=== PATIENT | female | born 1990 | race Caucasian/White ===

== ENCOUNTER 2018-12-18 13:55 | Inpatient (IN) | payer OTHER ==
[2018-12-18 17:19] VITALS: BMI 19.1
--- NOTE | 2018-12-18 19:00 | HP ---
<Mary Shepard - Last Filed: 12/18/18 18:54> CIWA Score Nausea/Vomitin-Mild Nausea/No Vomiting - Admission Criteria [facility]ASAS Guidelines: Admission for Medically Managed Detox: Requires at least one of the followin. CIWA greater than 12 2. Seizures within the past 24 hours 3. Delirium tremens within the past 24 hours 4. Hallucinations within the past 24 hours 5. Acute intervention needed for co occurring medical disorder 6. Acute intervention needed for co occurring psychiatric disorder 7. Severe withdrawal that cannot be handled at a lower level of care (continued vomiting, continued diarrhea, abnormal vital signs) requiring intravenous medication and/or fluids 8. Admission ROS [facility] Chief Complaint: heroin detox Allergies/Adverse Reactions: Allergies Allergy/AdvReac Type Severity Reaction Status Date / Time No Known Allergies Allergy Verified 12/18/18 17:14 History of Present Illness: poor historian. sedated. Patient is a 28 yo F with no known PMHx, here for heroin detox. 2-3 grams a day via IV. Started heroin 2 years ago. Was in a methadone program 5 months ago. 120mg. never overdosed. carries a narcan pen with her. uses cocaine every day via IV. can't quantify. Drinks 2-3 pints of vodka a day. Last drink at midnight. unemployed. homeless. - Ebola screening Have you traveled outside of the country in the last 21 days: No (N) Have you had contact with anyone from an Ebola affected area: No Do you have a fever: No Patient History - Patient Medical History Hx Anemia: No Hx Asthma: No Hx Chronic Obstructive Pulmonary Disease (COPD): No Hx Cancer: No Hx Cardiac Disorders: No Hx Congestive Heart Failure: No Hx Hypertension: No Hx Hypercholesterolemia: No Hx Pacemaker: No HX Cerebrovascular Accident: No Hx Seizures: Yes (etoh and drug related seizures/ last in 2014) Hx Dementia: No Hx Diabetes: No Hx Gastrointestinal Disorders: No Hx Liver Disease: No Hx Genitourinary Disorders: No Hx Sexually Transmitted Disorders: No Hx Renal Disease (ESRD): No Hx Thyroid Disease: No Hx Human Immunodeficiency Virus (HIV): No (NEGATIVE HX) Hx Hepatitis C: No Hx Depression: Yes Hx Suicide Attempt: No Hx Bipolar Disorder: No Hx Schizophrenia: No - Patient Surgical History Past Surgical History: No - PPD History Date: 12/31/15 Results: 0 mm - Reproductive History Last Menstrual Period: 01/27/16 - Smoking Cessation Smoking history: Current every day smoker Have you smoked in the past 12 months: Yes Aproximately how many cigarettes per day: 20 Cigars Per Day: 0 Hx Chewing Tobacco Use: No - Substances abused Heroin Substance route: Injection Frequency: Daily Amount used: 1 BRICK Age of first use: 25 Date of last use: 12/18/18 Cocaine Substance route: Injection Frequency: Daily Amount used: $1000 Age of first use: 25 Date of last use: 12/18/18 Alcohol Substance route: Oral Frequency: Daily Amount used: 1 PINT OF HENESSEY AND PATRON Age of first use: 25 Date of last use: 12/18/18 Family Disease History - Family Disease History Family Disease History: CA: Grandparent (GM-BREAST CA IN REMISSION), Respiratory : Mother (ASTHMA), Other: Sister (HTN) Admission Physical Exam [facility] - Vital Signs Vital Signs: Vital Signs - 24 hr 12/18/18 17:09 Temperature 97.1 F L Pulse Rate 58 L Respiratory 20 Rate Blood Pressure 135/60 Breathalyzer - Breathalyzer Breathalyzer: 0 Urine Drug Screen - Test Device Lot number: [id number] Expiration date: 09/06/20 - Control Is test valid?: Yes - Results Drug screen NEGATIVE: No Urine drug screen results: CHRISTIANO-Cocaine, FEN-Fentanyl, MOP-Opiates, OXY-Oxycodone <Edi Hartman - Last Filed: 12/18/18 20:27> COWS - Scale Resting Pulse: 0= [place] 80 or Below Sweatin= Chills/Flushing Restless Observation: 1= Difficult to Sit Still Pupil Size: 1= Pupils >than Normal Bone or Joint Aches: 2= Severe Diffuse Aches Runny Nose/ Eye Tearin= Runny Nose/Eyes GI Upset > 30mins: 1= Stomach Cramp Tremor Observation: 2= Slight Tremor Visible Yawning Observation: 1= 1-2x During Session Anxiety or Irritability: 2=Irritable/Anxious Goose Flesh Skin: 5=Prominent Piloerection COWS Score: 18 CIWA Score Nausea/Vomitin Muscle Tremors: 4-Moderate,w/Arms Extend Anxiety: 3 Agitation: 3 Paroxysmal Sweats: 1-Minimal Palms Moist Orientation: 2-Disoriented Date<2 days Tacttile Disturbances: 1-Very Mild Itch/Numbness Auditory Disturbances: 1-Very Mild Visual Disturbances: 2-Mild Sensitivity Headache: 3-Moderate CIWA-Ar Total Score: 22 - Admission Criteria OASAS Guidelines: Admission for Medically Managed Detox: Requires at least one of the followin. CIWA greater than 12 2. Seizures within the past 24 hours 3. Delirium tremens within the past 24 hours 4. Hallucinations within the past 24 hours 5. Acute intervention needed for co occurring medical disorder 6. Acute intervention needed for co occurring psychiatric disorder 7. Severe withdrawal that cannot be handled at a lower level of care (continued vomiting, continued diarrhea, abnormal vital signs) requiring intravenous medication and/or fluids 8. Patient presents the following: CIWA greater than 12 Admission Criteria Met: Admission criteria met Admission ROS [facility] - HPI Chief Complaint: nahed desires detox History of Present Illness: reports drinking henessey and patron most days of week - Review of Systems Constitutional: Malaise, Night Sweats, Unexplained wgt Loss EENT: reports: See HPI, Tearing Respiratory: reports: No Symptoms reported Cardiac: reports: No Symptoms Reported GI: reports: Nausea, Abdominal cramping : reports: No Symptoms Reported Musculoskeletal: reports: Muscle Pain Integumentary: reports: No Symptoms Reported Neuro: reports: No Symptoms reported Endocrine: reports: No Symptoms Reported Hematology: reports: No Symptoms Reported Psychiatric: reports: Anxious Patient History - Patient Medical History Hx Anemia: Yes Hx Asthma: No Hx Chronic Obstructive Pulmonary Disease (COPD): No Hx Cancer: No Hx Cardiac Disorders: No Hx Congestive Heart Failure: No Hx Hypertension: No Hx Hypercholesterolemia: No Hx Pacemaker: No HX Cerebrovascular Accident: No Hx Seizures: Yes Hx Dementia: No Hx Diabetes: No Hx Gastrointestinal Disorders: No Hx Liver Disease: No Hx Genitourinary Disorders: No Hx Sexually Transmitted Disorders: No Hx Renal Disease (ESRD): No Hx Thyroid Disease: No Hx Human Immunodeficiency Virus (HIV): No Hx Hepatitis C: No Hx Depression: Yes Hx Suicide Attempt: No Hx Bipolar Disorder: No Hx Schizophrenia: No - Patient Surgical History Other Surgical History: ho abcess drainage - PPD History Previous Implant?: Yes - Reproductive History Patient is a Female of Child Bearing Age (11 -55 yrs old): Yes Last Menstrual Period: 11/20/18 - Smoking Cessation Smoking history: Current every day smoker Have you smoked in the past 12 months: Yes Initiated information on smoking cessation: Yes 'Breaking Loose' booklet given: 12/18/18 - Substance & Tx. History Hx Alcohol Use: Yes Hx Substance Use: Yes - Substances abused Alcohol Frequency: 3-6 times per week Admission Physical Exam [facility] - Vital Signs Vital Signs: Vital Signs - 24 hr 12/18/18 17:09 Temperature 97.1 F L Pulse Rate 58 L Respiratory 20 Rate Blood Pressure 135/60 - Physical General Appearance: Yes: Disheveled, Irritable, Anxious HEENTM: Yes: EOMI, Normocephalic Respiratory: Yes: Within Normal Limits, Chest Non-Tender, Lungs Clear Neck: Yes: No masses,lesions,Nodules Breast: Yes: Breast Exam Deferred Cardiology: Yes: Regular Rate, S1, S2 Abdominal: Yes: Normal Bowel Sounds, Non Tender Genitourinary: Yes: Within Normal Limits Back: Yes: Within Normal Limits, Normal Inspection Musculoskeletal: Yes: Within Normal Limits, full range of Motion, Gait Steady Extremities: Yes: Normal Capillary Refill, Normal Inspection, Normal Range of Motion, Non-Tender Neurological: Yes: inspector rag sorting II-XII NML intact, Alert, Motor Strength 5/5, Normal Response Integumentary: Yes: Track Christiansen, Other (diffuse bl ue scarring) Lymphatic: Yes: Within Normal Limits - Diagnostic (1) Alcohol dependence with uncomplicated withdrawal Current Visit: Yes Status: Acute (2) Opioid dependence with withdrawal Current Visit: Yes Status: Acute (3) Depression (emotion) Current Visit: Yes Status: Suspected Qualifiers: Depression Type: dysthymia Qualified Code(s): F34.1 - Dysthymic disorder Comment: insomnia (4) Drug withdrawal seizure Current Visit: Yes Status: Suspected Cleared for Admission [facility] - Detox or Rehab [facility] Level of Care: Medically Supervised Inpatient Rehab Admission - Rehab Decision to Admit Inpatient rehab admission?: No
[2018-12-18] MEDS ORDERED: MENTHOL/PHENOL 1 EACH UD MM PRN (20:29)
[2018-12-18] MEDS ORDERED: METHOCARBAMOL 500 MG TABLET PO PRN (20:29)
[2018-12-18] MEDS ORDERED: hydrOXYzine PAMOATE 25 MG CAPSULE (FP) PO PRN (20:29)
[2018-12-18] MEDS ORDERED: IBUPROFEN 400 MG TABLET (FP) PO PRN (20:29)
[2018-12-18] MEDS ORDERED: NICOTINE POLACRILEX 2 MG GUM BUC PRN (20:29)
[2018-12-18] MEDS ORDERED: BISMUTH SUBSALICYLATE 524 MG/30 ML UD PO PRN (20:29)
[2018-12-18] MEDS ORDERED: MAG HYDROX/AL HYDROX/SIMETH 30 ML UNIT-DOSE CUP PO PRN (20:29)
[2018-12-18] MEDS ORDERED: ACETAMINOPHEN 325 MG TABLET (FP) PO PRN ×2 (20:29)
[2018-12-18] MEDS ORDERED: MAGNESIUM HYDROX 2400MG/30ML ORAL SUSPENSION 30 ML CUP PO PRN (20:29)
[2018-12-18] MEDS ORDERED: MAGNESIUM CITRATE 300 ML BOTTLE PO PRN (20:29)
--- NOTE | 2018-12-18 20:29 | PN ---
Teaching Attending Note Name of Resident: Mary Shepard ATTENDING PHYSICIAN STATEMENT I saw and evaluated the patient. I reviewed the resident's note and discussed the case with the resident. I agree with the resident's findings and plan as documented. SUBJECTIVE: withdrawal OBJECTIVE:cows/ciwa meet criteria ASSESSMENT AND PLAN: admit to detox taper per proptoocol Problem List - Problems (1) Alcohol dependence with uncomplicated withdrawal Code(s): F10.230 - ALCOHOL DEPENDENCE WITH WITHDRAWAL, UNCOMPLICATED (2) Opioid dependence with withdrawal Code(s): F11.23 - OPIOID DEPENDENCE WITH WITHDRAWAL (3) Depression (emotion) Code(s): F32.9 - MAJOR DEPRESSIVE DISORDER, SINGLE EPISODE, UNSPECIFIED Qualifiers: Depression Type: dysthymia Qualified Code(s): F34.1 - Dysthymic disorder (4) Drug withdrawal seizure Code(s): F19.239 - OTH PSYCHOACTIVE SUBSTANCE DEPENDENCE WITH WITHDRAWAL, UNSP; R56.9 - UNSPECIFIED CONVULSIONS
[2018-12-18] MEDS: NICOTINE 21 MG/24 HOURS TOPICAL PATCH TD SCH (22:24)
[2018-12-18] MEDS: THIAMINE HCL 100 MG TABLET (FP) PO SCH (22:26)
[2018-12-18] MEDS: chlordiazePOXIDE HCL 25 MG CAPSULE PO SCH (22:35)
[2018-12-18] MEDS ORDERED: cloNIDine HCL 0.1 MG TABLET PO PRN (22:47)
[2018-12-18] MEDS ORDERED: chlordiazePOXIDE HCL 10 MG CAPSULE PO PRN (22:47)
[2018-12-18] MEDS ORDERED: METHADONE HCL 10 MG TABLET (FOR DETOX USE ONLY) PO ONE (22:47)
[2018-12-19] MEDS: chlordiazePOXIDE HCL 25 MG CAPSULE PO SCH (00:36)
[2018-12-19] MEDS: chlordiazePOXIDE 5 MG CAPSULE PO SCH ×3 (06:46→21:23)
[2018-12-19] MEDS ORDERED: ONDANSETRON *ODT* 4 MG TABLET SL PRN (09:43)
--- NOTE | 2018-12-19 09:44 | PN ---
S CIWA - CIWA Score Nausea/Vomitin Muscle Tremors: 2 Anxiety: 2 Agitation: 2 Paroxysmal Sweats: 1-Minimal Palms Moist Orientation: 0-Oriented Tacttile Disturbances: 1-Very Mild Itch/Numbness Auditory Disturbances: 0-None Visual Disturbances: 0-None Headache: 2-Mild CIWA-Ar Total Score: 12 [facility] COWS - Scale Resting Pulse: 0= [place] 80 or Below Sweatin= Chills/Flushing Restless Observation: 1= Difficult to Sit Still Pupil Size: 0= Normal to Room Light Bone or Joint Aches: 1= Mild Discomfort Runny Nose/ Eye Tearin= Nasal Congestion GI Upset > 30mins: 1= Stomach Cramp Tremor Observation of Outstretched Hands: 2= Slight Tremor Visible Yawning Observation: 1= 1-2x During Session Anxiety or Irritability: 2=Irritable/Anxious Goose Flesh Skin: 0=Smooth Skin COWS Score: 10 [facility] Progress Note (SOAP) Subjective: alert,irritable,anxious,interrupted sleep,pain in the body and back Objective: 12/19/18 09:43 Vital Signs Temperature 97.9 F 12/19/18 09:15 Pulse Rate 70 12/19/18 09:15 Respiratory Rate 18 12/19/18 09:15 Blood Pressure 113/57 L 12/19/18 09:15 O2 Sat by Pulse Oximetry (%) 12/19/18 09:43 Laboratory Last Values POC Urine HCG, Qual Negative 12/18/18 18:12 labs pending Assessment: 12/19/18 09:43 withdrawal symptom Plan: continue detox methadone and librium regimen
[2018-12-19] MEDS ORDERED: METHADONE HCL 10 MG TABLET (FOR DETOX USE ONLY) PO ONE (09:47)
--- NOTE | 2018-12-19 09:50 | PN ---
[facility] Progress Note Note: alert,oriented x 3,methadone 30 mg detox first dose ordered for today
[2018-12-19 09:56] LABS: HEMOGLOBIN 13.1 GM/dL (10.7-15.3); MCH 28.7 pg (25.7-33.7); MCHC 32.7 g/dl (32.0-36.0); MEAN CELL VOLUME 87.6 fl (80-96); MEAN PLT VOLUME 9.5 fl (7.5-11.1); PLATELET COUNT 304 K/MM3 (134-434); RBC 4.57 M/mm3 (3.60-5.2); RDW 15.9 % (11.6-15.6); WHITE BLOOD COUNT 5.5 K/mm3 (4.0-10.0)
[2018-12-19 10:11] LABS: ALBUMIN 3.1 g/dl (3.4-5.0); BILIRUBIN,TOTAL 0.4 mg/dL (0.2-1); BLOOD UREA NITROGEN 8.3 mg/dL (7-18); CALCIUM 9.1 mg/dL (8.5-10.1); CREATININE 0.8 mg/dL (0.55-1.3); POTASSIUM 4.2 mmol/L (3.5-5.1); TOT PROT 6.8 g/dl (6.4-8.2)
[2018-12-19] MEDS: PRENATAL VITAMINS W/ FOLIC ACID TABLET (FP) PO SCH (10:15)
[2018-12-19] MEDS: NICOTINE 21 MG/24 HOURS TOPICAL PATCH TD SCH (10:15)
[2018-12-19] MEDS: THIAMINE HCL 100 MG TABLET (FP) PO SCH (21:23)
[2018-12-19] MEDS: MELATONIN 5 MG TABLETS PO PRN (21:25)
[2018-12-20] MEDS ORDERED: METHADONE HCL 10 MG TABLET (FOR DETOX USE ONLY) PO ONE (06:00)
[2018-12-20] MEDS: chlordiazePOXIDE HCL 10 MG CAPSULE PO SCH ×3 (06:41→22:32)
[2018-12-20] MEDS: PRENATAL VITAMINS W/ FOLIC ACID TABLET (FP) PO SCH (10:29)
[2018-12-20] MEDS: chlordiazePOXIDE HCL 10 MG CAPSULE PO PRN ×2 (10:30→18:19)
[2018-12-20] MEDS: NICOTINE 21 MG/24 HOURS TOPICAL PATCH TD SCH (10:31)
--- NOTE | 2018-12-20 10:50 | PN ---
S CIWA - CIWA Score Nausea/Vomitin Muscle Tremors: 2 Anxiety: 2 Agitation: 2 Paroxysmal Sweats: No Perspiration Orientation: 0-Oriented Tacttile Disturbances: 0-None Auditory Disturbances: 0-None Visual Disturbances: 0-None Headache: 2-Mild CIWA-Ar Total Score: 10 [facility] COWS - Scale Resting Pulse: 1= [place] 81-100 Sweatin= Chills/Flushing Restless Observation: 1= Difficult to Sit Still Pupil Size: 1= Pupils >than Normal Bone or Joint Aches: 1= Mild Discomfort Runny Nose/ Eye Tearin= Nasal Congestion GI Upset > 30mins: 1= Stomach Cramp Tremor Observation of Outstretched Hands: 1= Tremor [place], Not Seen Yawning Observation: 1= 1-2x During Session Anxiety or Irritability: 2=Irritable/Anxious Goose Flesh Skin: 0=Smooth Skin COWS Score: 11 S Progress Note (SOAP) Subjective: alert,irritable,anxious,interrupted sleep,pain in the body and back Objective: 12/20/18 10:48 Vital Signs Temperature 98.4 F 12/20/18 09:22 Pulse Rate 94 H 12/20/18 09:22 Respiratory Rate 18 12/20/18 09:22 Blood Pressure 136/63 12/20/18 09:22 O2 Sat by Pulse Oximetry (%) Laboratory Last Values WBC 5.5 K/mm3 (4.0-10.0) 12/19/18 08:00 RBC 4.57 M/mm3 (3.60-5.2) 12/19/18 08:00 Hgb 13.1 GM/dL (10.7-15.3) 12/19/18 08:00 Hct 40.0 % (32.4-45.2) 12/19/18 08:00 MCV 87.6 fl (80-96) 12/19/18 08:00 MCH 28.7 pg (25.7-33.7) 12/19/18 08:00 MCHC 32.7 g/dl (32.0-36.0) 12/19/18 08:00 RDW 15.9 % (11.6-15.6) H D 12/19/18 08:00 Plt Count 304 K/MM3 (134-434) D 12/19/18 08:00 MPV 9.5 fl (7.5-11.1) 12/19/18 08:00 Sodium 140 mmol/L (136-145) 12/19/18 08:00 Potassium 4.2 mmol/L (3.5-5.1) 12/19/18 08:00 Chloride 106 mmol/L (98-107) 12/19/18 08:00 Carbon Dioxide 27 mmol/L (21-32) 12/19/18 08:00 Anion Gap 7 MMOL/L (8-16) L 12/19/18 08:00 BUN 8.3 mg/dL (7-18) 12/19/18 08:00 Creatinine 0.8 mg/dL (0.55-1.3) 12/19/18 08:00 Est GFR (CKD-EPI)AfAm 116.28 12/19/18 08:00 Est GFR (CKD-EPI)NonAf 100.33 12/19/18 08:00 Random Glucose 104 mg/dL (74-106) 12/19/18 08:00 Calcium 9.1 mg/dL (8.5-10.1) 12/19/18 08:00 Total Bilirubin 0.4 mg/dL (0.2-1) 12/19/18 08:00 AST 91 U/L (15-37) H 12/19/18 08:00 ALT 112 U/L (13-61) H 12/19/18 08:00 Alkaline Phosphatase 70 U/L (45-117) 12/19/18 08:00 Total Protein 6.8 g/dl (6.4-8.2) 12/19/18 08:00 Albumin 3.1 g/dl (3.4-5.0) L 12/19/18 08:00 POC Urine HCG, Qual Negative 12/18/18 18:12 RPR Titer Nonreactive (NONREACTIVE) 12/19/18 08:00 Assessment: 12/20/18 10:49 withdrawal symptom Plan: continue detox methadone and librium regimen
[2018-12-20] MEDS: MELATONIN 5 MG TABLETS PO PRN (22:32)
[2018-12-20] MEDS: THIAMINE HCL 100 MG TABLET (FP) PO SCH (22:32)
[2018-12-21] MEDS ORDERED: METHADONE HCL 10 MG TABLET (FOR DETOX USE ONLY) ONE (04:48)
[2018-12-21] MEDS ORDERED: METHADONE HCL 5 MG TABLET (FOR DETOX USE ONLY) ONE (04:48)
[2018-12-21] MEDS ORDERED: chlordiazePOXIDE HCL 10 MG CAPSULE PO ONE (05:00)
[2018-12-21] MEDS ORDERED: METHADONE (DETOX) 10 MG, METHADONE (DETOX) 5 MG PO ONE (06:00)
[2018-12-21 09:12] VITALS: BP 108/59; PULSE 65; TEMP 98.5
[2018-12-21] MEDS: PRENATAL VITAMINS W/ FOLIC ACID TABLET (FP) PO SCH (10:21)
[2018-12-21] MEDS: NICOTINE 21 MG/24 HOURS TOPICAL PATCH TD SCH (10:21)
--- NOTE | 2018-12-21 10:37 | PN ---
S CIWA - CIWA Score Nausea/Vomitin-No Nausea/No Vomiting Muscle Tremors: None Anxiety: 3 Agitation: 0-Normal Activity Paroxysmal Sweats: 3 Orientation: 0-Oriented Tacttile Disturbances: 0-None Auditory Disturbances: 0-None Visual Disturbances: 0-None Headache: 2-Mild CIWA-Ar Total Score: 8 [facility] COWS - Scale Resting Pulse: 0= [place] 80 or Below Sweatin= Chills/Flushing Restless Observation: 1= Difficult to Sit Still Pupil Size: 0= Normal to Room Light Bone or Joint Aches: 2= Severe Diffuse Aches Runny Nose/ Eye Tearin= None GI Upset > 30mins: 0= None Tremor Observation of Outstretched Hands: 0= None Yawning Observation: 1= 1-2x During Session Anxiety or Irritability: 2=Irritable/Anxious Goose Flesh Skin: 0=Smooth Skin COWS Score: 7 S Progress Note (SOAP) Subjective: c/o headache, sweats, anxiety, muscle aches, and irritability. Objective: 12/21/18 10:35 Vital Signs 12/21/18 12/21/18 12/21/18 03:30 06:56 09:11 Temperature 97 F L 98.5 F Pulse Rate 66 65 Respiratory 18 18 16 Rate Blood Pressure 109/53 L 108/59 L Lab Results WBC 5.5 K/mm3 (4.0-10.0) 12/19/18 08:00 RBC 4.57 M/mm3 (3.60-5.2) 12/19/18 08:00 Hgb 13.1 GM/dL (10.7-15.3) 12/19/18 08:00 Hct 40.0 % (32.4-45.2) 12/19/18 08:00 MCV 87.6 fl (80-96) 12/19/18 08:00 MCHC 32.7 g/dl (32.0-36.0) 12/19/18 08:00 RDW 15.9 % (11.6-15.6) H D 12/19/18 08:00 Plt Count 304 K/MM3 (134-434) D 12/19/18 08:00 Sodium 140 mmol/L (136-145) 12/19/18 08:00 Potassium 4.2 mmol/L (3.5-5.1) 12/19/18 08:00 Chloride 106 mmol/L (98-107) 12/19/18 08:00 Carbon Dioxide 27 mmol/L (21-32) 12/19/18 08:00 Anion Gap 7 MMOL/L (8-16) L 12/19/18 08:00 BUN 8.3 mg/dL (7-18) 12/19/18 08:00 Creatinine 0.8 mg/dL (0.55-1.3) 12/19/18 08:00 Random Glucose 104 mg/dL (74-106) 12/19/18 08:00 Calcium 9.1 mg/dL (8.5-10.1) 12/19/18 08:00 Labs noted. Assessment: 12/21/18 10:35 AOX3, in no acute respiratory distress. Full ROM, ambulating in the unit. Withdrawal symptoms. Plan: continue detox. Increase fluids.
--- NOTE | 2018-12-21 13:34 | DS ---
[facility] Detox Discharge Summary Admission Date: 12/18/18 Discharge Date: 12/21/18 (Left AMA) - History Present History: Alcohol Dependence, Cocaine Dependence, Opioid Dependence Additional Comments: Pt left AMA, pt did not complete her detox protocol. Pt states she has to go and take care of something. An attempt to let pt stay and complete her protocol failed. Pt is encouraged to follow-up with [facility] outpatient program and also to follow-up with her PMD. Pt was adamant about information given. Pt is alert and oriented 3 and in no respiratory distress. Pertinent Past History: h/o Heroin, cocaine, and alcohol use disorder. - Physical Exam Results Vital Signs: Vital Signs Temperature 98.5 F 12/21/18 09:11 Pulse Rate 65 12/21/18 09:11 Respiratory Rate 16 12/21/18 09:11 Blood Pressure 108/59 L 12/21/18 09:11 O2 Sat by Pulse Oximetry (%) Vital Signs 12/21/18 12/21/18 06:56 09:11 Temperature 97 F L 98.5 F Pulse Rate 66 65 Respiratory 18 16 Rate Blood Pressure 109/53 L 108/59 L Lab Results WBC 5.5 K/mm3 (4.0-10.0) 12/19/18 08:00 RBC 4.57 M/mm3 (3.60-5.2) 12/19/18 08:00 Hgb 13.1 GM/dL (10.7-15.3) 12/19/18 08:00 Hct 40.0 % (32.4-45.2) 12/19/18 08:00 MCV 87.6 fl (80-96) 12/19/18 08:00 MCHC 32.7 g/dl (32.0-36.0) 12/19/18 08:00 RDW 15.9 % (11.6-15.6) H D 12/19/18 08:00 Plt Count 304 K/MM3 (134-434) D 12/19/18 08:00 Sodium 140 mmol/L (136-145) 12/19/18 08:00 Potassium 4.2 mmol/L (3.5-5.1) 12/19/18 08:00 Chloride 106 mmol/L (98-107) 12/19/18 08:00 Carbon Dioxide 27 mmol/L (21-32) 12/19/18 08:00 Anion Gap 7 MMOL/L (8-16) L 12/19/18 08:00 BUN 8.3 mg/dL (7-18) 12/19/18 08:00 Creatinine 0.8 mg/dL (0.55-1.3) 12/19/18 08:00 Random Glucose 104 mg/dL (74-106) 12/19/18 08:00 Calcium 9.1 mg/dL (8.5-10.1) 12/19/18 08:00 Labs noted. Pertinent Admission Physical Exam Findings: Withdrawal symptoms. - Treatment Hospital Course: Detox Protocol Followed - Medication Discharge Medications: Ambulatory Orders NK [No Known Home Medication] 12/29/15 - Diagnosis (1) Alcohol dependence with uncomplicated withdrawal Status: Acute (2) Opioid dependence with withdrawal Status: Acute (3) Sedative, hypnotic or anxiolytic dependence with withdrawal, uncomplicated Status: Acute (4) Cocaine dependence Status: Chronic Qualifiers: Substance use status: uncomplicated Qualified Code(s): F14.20 - Cocaine dependence, uncomplicated (5) Nicotine dependence Status: Chronic Qualifiers: Nicotine product type: cigarettes Substance use status: uncomplicated Qualified Code(s): F17.210 - Nicotine dependence, cigarettes, uncomplicated - AMA Did Patient Leave Against Medical Advice: Yes
[2018-12-22] MEDS ORDERED: METHADONE HCL 10 MG TABLET (FOR DETOX USE ONLY) PO ONE (06:00)
[2018-12-23] MEDS ORDERED: METHADONE HCL 5 MG TABLET (FOR DETOX USE ONLY) PO ONE (06:00)
== END 2018-12-21 11:52 | disposition home or self-care (01) | DRG 773 ==
LOC: YASAS 13:55 → Y6N 20:36
PROVIDERS: ADMIT Surgery; ATTEND Surgery
PROC: HZ2ZZZZ Detoxification Services for Substance Abuse Treatment (ICD-10-PCS; principal; 2018-12-18)
DX: F10.230 Alcohol dependence with withdrawal, uncomplicated (principal); F11.23 Opioid dependence with withdrawal; F13.230 Sedative, hypnotic or anxiolytic dependence with withdrawal, uncomplicated; F14.20 Cocaine dependence, uncomplicated; F17.210 Nicotine dependence, cigarettes, uncomplicated; F34.1 Dysthymic disorder; Z86.69 Personal history of other diseases of the nervous system and sense organs
CPT/HCPCS: 36415; 80053; 81025; 85027; 86593

== ENCOUNTER 2023-12-18 18:30 | Inpatient (IN) | payer OTHER ==
[2023-12-18 19:21] VITALS: BMI 29.1
[2023-12-18] MEDS ORDERED: POLYETHYLENE GLYCOL (HEALTHYLAX) 3350 17 GM PACKET PO PRN (20:02)
[2023-12-18] MEDS ORDERED: MAGNESIUM HYDROX 2400MG/30ML ORAL SUSPENSION 30 ML CUP PO PRN (20:02)
[2023-12-18] MEDS ORDERED: BENZOCAINE/MENTHOL (CHLORASEPTIC ) LOZENGE MM PRN (20:02)
[2023-12-18] MEDS ORDERED: MAG HYDROX/AL HYDROX/SIMETH 30 ML UNIT-DOSE CUP PO PRN (20:02)
[2023-12-18] MEDS ORDERED: BENZONATATE 200 MG CAPSULE PO PRN (20:02)
[2023-12-18] MEDS ORDERED: NICOTINE POLACRILEX 2 MG GUM BUC PRN (20:02)
[2023-12-18] MEDS ORDERED: NALOXONE (NARCAN) HCL 4 MG/0.1 ML SPRAY NS PRN (20:02)
[2023-12-18] MEDS ORDERED: NICOTINE POLACRILEX 2 MG LOZENGE BC PRN (20:02)
[2023-12-18] MEDS ORDERED: guaiFENesin 600 MG TABLET.ER (FP) PO PRN (20:02)
[2023-12-18] MEDS ORDERED: P-EPHED 60MG/TRIPROLIDI 2.5MG TABLET PO PRN (20:02)
[2023-12-18] MEDS ORDERED: IBUPROFEN 400 MG TABLET (FP) PO PRN (20:02)
[2023-12-18] MEDS ORDERED: NALOXONE HCL 0.4 MG/ML VIAL IM PRN (20:02)
[2023-12-18] MEDS ORDERED: LOPERAMIDE HCL 2 MG CAPSULE PO PRN (20:02)
[2023-12-18] MEDS: MELATONIN 5 MG TABLETS PO SCH (21:47)
[2023-12-18] MEDS: hydrOXYzine PAMOATE 25 MG CAPSULE (FP) PO ONE (21:48)
[2023-12-18] MEDS: THIAMINE 100 MG TABLET PO SCH (21:48)
[2023-12-19] MEDS ORDERED: TUBERCULIN PPD 5 TU/0.1ML VIAL ID ONE (09:14)
[2023-12-19] MEDS: PRENATAL VITAMINS W/ FOLIC ACID TABLET (FP) PO SCH (09:17)
[2023-12-19] MEDS: TUBERCULIN PPD 5 TU/0.1ML SYRINGE (IN PATIENT USE ONLY) ID ONE (09:18)
[2023-12-19] MEDS: methaDONE HCL 40 MG DISPERSABLE TABLET PO SCH (09:37)
[2023-12-19] MEDS: METHOCARBAMOL 500 MG TABLET PO PRN (11:08)
[2023-12-19] MEDS: hydrOXYzine PAMOATE 25 MG CAPSULE (FP) PO PRN (15:12)
[2023-12-19] MEDS: traZODone HCL 50 MG TABLET (FP) PO SCH (21:22)
[2023-12-19 22:12] LABS: EPI CELLS 13 /uL (0-25.1); HYALINE CASTS 1 /uL (0-3.1); PH,URINE 7.5 (5.0-8.0); URINE APPEARANCE CLEAR; URINE BACTERIA >9,000 /uL (0-1359); URINE BILIRUBIN NEGATIVE (NEGATIVE); URINE COLOR YELLOW; URINE GLUCOSE (UA) NEGATIVE (NEGATIVE); URINE KETONE NEGATIVE (NEGATIVE); URINE LEUK ESTERASE 2+ (NEGATIVE); URINE NITRITE POSITIVE (NEGATIVE); URINE PROTEIN NEGATIVE (NEGATIVE); URINE RBC 7 /uL (0-23.9); URINE UROBILINOGEN 0.2 mg/dL (0.2-1.0); URINE WBC 332 /uL (0-25.8)
[2023-12-20] MEDS: ACETAMINOPHEN 325 MG TABLET (FP) PO PRN (17:50)
[2023-12-21] MEDS: IBUPROFEN 600 MG TABLET (FP) PO PRN (14:09)
[2023-12-23 07:14] VITALS: RESP 18
[2023-12-24] MEDS: BACITRACIN 0.9 GM PACKET TP SCH (13:27)
[2023-12-24] MEDS: NICOTINE 21 MG/24 HOURS TOPICAL PATCH TD SCH (13:27)
[2023-12-24] MEDS: hydrOXYzine PAMOATE 25 MG CAPSULE (FP) PO PRN (16:44)
[2023-12-24] MEDS: BACLOFEN 10 MG TABLET (FP) PO SCH (21:13)
[2023-12-24] MEDS: traZODone HCL 50 MG TABLET (FP) PO SCH (21:13)
[2023-12-25 14:28] LABS: EPI CELLS 7 /uL (0-25.1); HYALINE CASTS 0 /uL (0-3.1); URINE APPEARANCE CLOUDY; URINE BACTERIA 7184 /uL (0-1359); URINE BILIRUBIN NEGATIVE (NEGATIVE); URINE COLOR YELLOW; URINE GLUCOSE (UA) NEGATIVE (NEGATIVE); URINE KETONE NEGATIVE (NEGATIVE); URINE LEUK ESTERASE NEGATIVE (NEGATIVE); URINE NITRITE POSITIVE (NEGATIVE); URINE PROTEIN NEGATIVE (NEGATIVE); URINE RBC 3 /uL (0-23.9); URINE WBC 12 /uL (0-25.8)
[2023-12-26] MEDS: SULFAMETHOXAZOLE/TRIMETHOPRIM 800MG/160MG D.S. TABLET PO SCH (14:29)
[2023-12-27] MEDS: BENZOCAINE 20 % GEL TUBE MM PRN (21:28)
[2024-01-01 06:54] VITALS: BP 102/63; PULSE 90; TEMP 98
== END 2024-01-01 10:15 | disposition home or self-care (01) | DRG 772 ==
LOC: YASAS 18:30 → Y5N 21:09
PROVIDERS: ADMIT Psychiatry & Neurology Pain Medicine; ATTEND Psychiatry & Neurology Pain Medicine
PROC: HZ42ZZZ Group Counseling for Substance Abuse Treatment, Cognitive-Behavioral (ICD-10-PCS; principal; 2023-12-18)
DX: F14.20 Cocaine dependence, uncomplicated (principal); F11.20 Opioid dependence, uncomplicated; F17.210 Nicotine dependence, cigarettes, uncomplicated; F19.282 Other psychoactive substance dependence with psychoactive substance-induced sleep disorder; F19.24 Other psychoactive substance dependence with psychoactive substance-induced mood disorder; F41.9 Anxiety disorder, unspecified; F34.1 Dysthymic disorder; K02.9 Dental caries, unspecified; N39.0 Urinary tract infection, site not specified; B96.20 Unspecified Escherichia coli [E. coli] as the cause of diseases classified elsewhere
CPT/HCPCS: 36415; 80305; 81003; 81025; 83036; 83735; 86803; 87086; 87186; 87522; 93005; 93010; J0475